=== PATIENT | female | born 1980 | race Caucasian/White ===

== ENCOUNTER 2017-10-17 07:15 | Emergency (ER) | payer SELFPAY ==
[~2017-10-17] VITALS: Ht 170.2 cm; Wt 68.0 kg
--- NOTE | 2017-10-17 07:15 | NUR ---
BIBA TO ER BED 7
[2017-10-17 07:18] VITALS: BP 130/84
--- NOTE | 2017-10-17 07:27 | NUR ---
PATIENT PRESENTS TO ED WITH c-collar placed by ems s/p tc c/o r parietal and neck base pain . PT STATES . DENIES N/V/D; SKIN IS PINK/WARM/DRY; AAOX4 WITH EVEN AND STEADY GAIT; LUNGS CLEAR BL; HR EVEN AND REGULAR; PT DENIES ANY FEVER, CP, SOB, OR COUGH AT THIS TIME; PATIENT STATES PAIN OF 8/10 AT THIS TIME; VSS; PATIENT POSITIONED FOR COMFORT; HOB ELEVATED; BEDRAILS UP X2; BED DOWN. ER MD MADE AWARE OF PT STATUS.
[2017-10-17] MEDS: ACETAMINOPHEN 325 MG TAB PO ONE (07:52)
--- NOTE | 2017-10-17 07:55 | NUR ---
[facility] PD AT BEDSIDE.
[2017-10-17 08:30] VITALS: BP 132/77
--- NOTE | 2017-10-17 08:30 | NUR ---
Patient discharged with v/s stable. Written and verbal after care instructions given and explained. Patient verbalized understanding. Ambulatory with steady gait. All questions addressed prior to discharge. Advised to follow up with PMD.
== END 2017-10-17 08:30 | disposition home or self-care (01) ==
LOC: MED 07:15
DX: S00.81XA Abrasion of other part of head, initial encounter (principal); R51 Headache; V49.40XA Driver injured in collision with unspecified motor vehicles in traffic accident, initial encounter; Y93.89 Activity, other specified; Y92.89 Other specified places as the place of occurrence of the external cause; Y99.8 Other external cause status
CPT/HCPCS: 99283